=== PATIENT | female | born 1950 | race Caucasian/White ===

== ENCOUNTER 2024-08-25 19:18 | Emergency (ER) | payer MEDICARE, MEDICAID, SELFPAY ==
[2024-08-25 19:22] VITALS: BP 202/102; PULSE 84; RESP 18; TEMP 36.6; O2SAT 96
[2024-08-25 19:43] VITALS: BP 216/111; PULSE 75; RESP 16; O2SAT 95
--- NOTE | 2024-08-25 19:57 | CTR_ITS ---
PROCEDURE INFORMATION: Exam: CT Head Without Contrast Exam date and time: 08/25/2024 8:21 PM Age: 74 years old Clinical indication: Pain; Headache; Additional info: Headache, sbp 210 TECHNIQUE: Imaging protocol: Computed tomography of the head without contrast. Radiation optimization: All CT scans at this facility use at least one of these dose optimization techniques: automated exposure control; mA and/or kV adjustment per patient size (includes targeted exams where dose is matched to clinical indication); or iterative reconstruction. COMPARISON: No relevant prior studies available. RADIATION DOSE METRICS: Total DLP (mGy-cm): 1092.68 FINDINGS: Brain: Moderate generalized cortical volume loss. No hemorrhage. Periventricular and subcortical white matter hypodensities likely represent chronic small vessel ischemic changes. Left parieto-occipital encephalomalacia No mass effect. Cerebral ventricles: No ventriculomegaly. Paranasal sinuses: Visualized sinuses are unremarkable. No fluid levels. Mastoid air cells: Visualized mastoid air cells are well aerated. Orbital cavities: Bilateral lens replacements. Bones: Hyperostosis frontalis. No acute fracture. Soft tissues: Unremarkable. Vasculature: Vascular calcifications along the carotid siphons. CT/CT head wo con* [id number] IMPRESSION: 1. No acute intracranial abnormality. 2. Chronic/age-related changes as above.
[2024-08-25 20:05] LABS: Basophils # 0.1 10^3/uL (0.0-0.1); Basophils % 0.4 %; Eosinophils # 0.2 10^3/uL (0.0-0.8); Eosinophils % 1.8 %; Hematocrit 48.7 % (36-47); Lymphocytes # 4.1 10^3/uL (0.8-4.8); Lymphocytes % 36.4 %; Mean Corpuscular HGB Conc 31.6 g/dL (30-55); Mean Corpuscular Hemoglobin 29.8 pg (27-33); Mean Corpuscular Volume 94.2 fl (85-98); Mean Platelet Volume 11.8 fL (7.4-10.4); Monocytes # 0.7 10^3/uL (0.2-0.9); Monocytes % 6.5 %; Neutrophils # 6.19 10^3/uL (1.8-7.7); Neutrophils % 54.5 %; Nucleated Red Blood Cells % 0 %; Platelet Count 336 10^3/cmm (157-399); Red Blood Count 5.17 10^6/uL (3.85-5.65); Red Cell Distribution Width 12.6 % (12.1-15.1); White Blood Count 11.37 10^3/uL (3.29-11.43)
--- NOTE | 2024-08-25 20:08 | ECG_ITS ---
[facility]: 2024-08[facility]25 Pat Name: Monse Servin Department: Room: Gender: Female [employer] Member: : [id number] Requested By: Nasir Gilliam Order Number: [id number] Reading MD: Measurements Intervals [place] Rate: 76 P: 66 IA: 175 QRS: 69 QRSD: 87 T: 60 QT: 354 QTc: 398 Interpretive Statements SINUS RHYTHM NONSPECIFIC ST & T-WAVE ABNORMALITY [email or web address]
--- NOTE | 2024-08-25 20:09 | ED_ITS ---
HPI - General Adult 2 General: Chief complaint: General Medical Stated complaint: HIGH BP Time Seen by Provider: 08/25/24 19:24 History of Present Illness: Patient is a generally well-appearing 74-year-old female seen for accelerated hypertension. She takes 20 mg lisinopril but states that for the last week her blood pressure been over 200 systolic. She also endorses 5 of 10 mild throbbing headache which has been ongoing for the last 2 days. It was not the worst headache of her life and did not come on suddenly. She has no visual disturbance or lateralizing deficits from the headache. She has been on lisinopril for a long time with no changes in dosage. She has not been sick recently with cough, fever, chest pain, shortness of breath, nausea, vomiting, diarrhea, constipation, dysuria, frequency, and has no other acute complaints. She was told to go to the emergency department because of the combination of headache and ongoing accelerated hypertension. Related Data Allergies Allergy/AdvReac Type Severity Reaction Status Date / Time amoxicillin Allergy Unknown Verified 08/25/24 19:28 diphenhydramine (From Allergy Unknown Verified 08/25/24 19:28 Benadryl) meclizine Allergy Unknown Verified 08/25/24 19:28 Physical Exam 2 Const: COMMON NORMALS: no acute distress, patient oriented x3 and alert HENMT: COMMON NORMALS: normocephalic and atraumatic HEAD & SCALP: n ormocephalic and atraumatic Eye: COMMON NORMALS: Equal, round and reactive pupils present, EOMs intact bilaterally and no scleral icterus PUPIL: Yes Equal, round and reactive pupils present Resp: COMMON NORMALS: normal respiratory effort and No retractions Cardio: COMMON NORMALS: regular rate, regular rhythm and No murmurs present (Cardio) RATE: regular rate RHYTHM: regular rhythm GI: COMMON NORMALS: Normal to inspection, nondistended, normoactive bowel sounds present, Soft to palpation and non-tender PALPATION: Yes Soft to palpation Neuro: COMMON NORMALS: patient oriented x3 SENSORIUM/ORIENTATION: Yes alert Skin: COMMON NORMALS: no rashes or lesions noted GENERAL SKIN EXAM: no rashes or lesions noted Course 2 Vital Signs: Vital signs: Vital Signs Temperature 97.9 F 08/25/24 19:22 Pulse Rate 70 08/26/24 00:43 Respiratory Rate 19 H 08/26/24 00:43 Blood Pressure 165/95 08/26/24 00:43 Pulse Oximetry 96 08/26/24 00:43 Oxygen Delivery Me thod Room Air 08/25/24 22:21 MDM - General Adult Medical Decision Making Patient arrived significantly hypertensive. With pain control, blood pressure has dropped significantly. CT brain shows nothing acute. After receiving IV Tylenol, blood pressure dropped from 200 systolic to 165. I do not feel she requires further blood pressure modification. We discussed that pain control was sufficient to bring her blood pressure down to a tolerable level. She feels much better and will be discharged home in stable and improved condition with follow-up to primary care. She will continue check her blood pressure once a day to see whether further modifications needed to her medication regimen Lab Data 08/25/24 19:39 08/25/24 19:[address] 08/25/24 19:57 IMPRESSION: 1. No acute intracranial abnormality. 2. Chronic/age-related changes as above. Laboratory Results WBC 11.37 10^3/uL (3.29-11.43) 08/25/24 19:39 RBC 5.17 10^6/uL (3.85-5.65) 08/25/24 19:39 Hgb 15.40 g/dL (11.27-16.99) 08/25/24 19:39 Hct 48.7 % (36-47) H 08/25/24 19:39 MCV 94.2 fl (85-98) 08/25/24 19:39 MCH 29.8 pg (27-33) 08/25/24 19:39 MCHC 31.6 g/dL (30-55) 08/25/24 19:39 RDW 12.6 % (12.1-15.1) 08/25/24 19:39 Plt Count 336 10^3/cmm (157-399) 08/25/24 19:39 MPV 11.8 fL (7.4-10.4) H 08/25/24 19:39 Neut % (Auto) 54.5 % 08/25/24 19:39 Lymph % (Auto) 36.4 % 08/25/24 19:39 Stone % (Auto) 6.5 % 08/25/24 19:39 Eos % (Auto) 1.8 % 08/25/24 19:39 Baso % (Auto) 0.4 % 08/25/24 19:39 Neut # (Auto) 6.19 10^3/uL (1.8-7.7) 08/25/24 19:39 Lymph # (Auto) 4.1 10^3/uL (0.8-4.8) 08/25/24 19:39 Stone # (Auto) 0.7 10^3/uL (0.2-0.9) 08/25/24 19:39 Eos # (Auto) 0.2 10^3/uL (0.0-0.8) 08/25/24 19:39 Baso # (Auto) 0.1 10^3/uL (0.0-0.1) 08/25/24 19:39 Nucleated RBC % (auto) 0 % 08/25/24 19:39 Nucleated RBCs # 0.0 /100WBC 08/25/24 19:39 Sodium 145 mmol/L (136-145) 08/25/24 19:39 Potassium 3.9 mmol/L (3.5-5.1) 08/25/24 19:39 Chloride 104 mmol/L (98-107) 08/25/24 19:39 Carbon Dioxide 28 mmol/L (22-29) 08/25/24 19:39 Anion Gap 16.9 (5-19) 08/25/24 19:39 BUN 20 mg/dL (8-23) 08/25/24 19:39 Creatinine 0.7 mg/dL (0.5-0.9) 08/25/24 19:39 GFR Calculation Not Reportable 08/25/24 19:39 Glucose 90 mg/dL (65-115) 08/25/24 19:39 Calculated Osmolality 302 mOsm/kg (285-295) H 08/25/24 19:39 Calcium 10.5 mg/dL (8.5-10.5) 08/25/24 19:39 Total Bilirubin 0.2 mg/dL (0.15-1.2) 08/25/24 19:39 AST 13 U/L (0-32) 08/25/24 19:39 ALT 10 U/L (0-33) 08/25/24 19:39 Alkaline Phosphatase 131 U/L (35-105) H 08/25/24 19:39 Troponin T Baseline 10 ng/L (0-10) 08/25/24 19:39 Troponin T 120 Minute 9.92 ng/L (0-10) 08/25/24 21:36 Delta Troponin T -0.08 ABS# (0-10) L 08/25/24 21:36 Total Protein 7.1 g/dL (6.6-8.7) 08/25/24 19:39 Albumin 4.4 g/dL (3.5-5.2) 08/25/24 19:39 Globulin 2.7 g/dL (1.3-4.6) 08/25/24 19:39 All radiology interpretation(s) finalized by discharge EKG Data EKG 1: Interpretation: Time?2007?sinus rhythm, rate of 76, no ST segment elevation or depression, no T wave inversions, intervals within normal limits. QTc = 384 Computer generated interpretation: Head CT 08/25/24 19:57 IMPRESSION: 1. No acute intracranial abnormality. 2. Chronic/age-related changes as above. Discharge Plan Discharge Patient Disposition: Home Clinical Impression: Headache, Accelerated hypertension Condition: Stable Discharge Orders: Discharge ED (Routine); Ordered 08/25/24 Ordered By: Nasir Jay Discharge Diet: Usual diet Discharge Activity: Resume usual activity Patient Instructions: Acute Headache (ED), Hypertension (ED) Activity Restrictions/Additional Instructions: As we discussed, please take your normal 20 mg lisinopril tablet in the morning as you normally do. If you find that you have blood pressure greater than 180 at 8 PM, it would be reasonable to take half of 1 of those pills, 10 mg at night as well. Please follow-up with your doctor in the next few weeks to discuss whether they would like you to always take a higher dose of lisinopril. As for today, there is no evidence of heart problems or stroke and your blood tests were all reassuring and there is no need for emergent intervention at this time. Print Language: Thai Coding Level of Care Code ED Director [facility] for [facility]
[2024-08-25 20:25] LABS: Troponin(5th) Baseline 10 ng/L (0-10)
[2024-08-25 20:26] LABS: Alanine Aminotransferase 10 U/L (0-33); Albumin Level 4.4 g/dL (3.5-5.2); Alkaline Phosphatase 131 U/L (35-105); Anion Gap 16.9 (5-19); Aspartate Amino Transferase 13 U/L (0-32); Blood Urea Nitrogen 20 mg/dL (8-23); Calcium 10.5 mg/dL (8.5-10.5); Carbon Dioxide 28 mmol/L (22-29); Chloride 104 mmol/L (98-107); Globulin 2.7 g/dL (1.3-4.6); Glucose 90 mg/dL (65-115); Osmolality Calculated 302 mOsm/kg (285-295); Potassium 3.9 mmol/L (3.5-5.1); Sodium 145 mmol/L (136-145); Total Bilirubin 0.2 mg/dL (0.15-1.2); Total Protein 7.1 g/dL (6.6-8.7)
[2024-08-25] MEDS: sodium chloride 0.9% 500 ML 999 ML IV (20:35)
[2024-08-25] MEDS: acetaminophen 1,000 MG/100 ML PIGGYBACK 400 MG IV (20:36)
[2024-08-25 20:38] VITALS: BP 206/148; PULSE 76; RESP 23; O2SAT 97
[2024-08-25 21:26] VITALS: BP 192/127; PULSE 76; RESP 17; O2SAT 97
[2024-08-25 21:58] LABS: Troponin 5 2HR 9.92 ng/L (0-10)
[2024-08-25 22:02] LABS: Troponin 5 2HR Delta -0.08 ABS# (0-10)
[2024-08-25 22:21] VITALS: BP 130/112; PULSE 75; RESP 18; O2SAT 96
[2024-08-25 22:34] VITALS: BP 168/82
[2024-08-26 00:43] VITALS: BP 165/95; PULSE 70; RESP 19; O2SAT 96
== END 2024-08-25 22:59 | disposition home or self-care (01) ==
PROVIDERS: Emergency Provider Student in an Organized Health Care Education/Training Program; PCP Family Medicine
DX: R51.9 Headache, unspecified (principal); I10 Essential (primary) hypertension
CPT/HCPCS: 36415; 70450; 80053; 84484; 85025; 93005; 96365; 99285; J0131; J7040